=== PATIENT | female | born 1990 | race Caucasian/White ===

== ENCOUNTER 2016-08-20 11:51 | Emergency (ER) | payer OTHER ==
[~2016-08-20] VITALS: Ht 160 cm; Wt 78.5 kg
[~2016-08-20 11:51] MED LIST: CYCLOBENZAPRINE10 M1 PO; IBUPROFEN800 M1 PO; MICROGESTIN FE1 TA1 PO
[2016-08-20 11:56] VITALS: BP 139/89
--- NOTE | 2016-08-20 12:01 | ED GENERAL ADULT ---
History of Present Illness General Chief Complaint: General Adult Stated Complaint: FINGER STICK WITH SCISSORS AT WORK Source: patient Exam Limitations: no limitations Vital Signs & Intake/Output Vital Signs & Intake/Output Vital Signs Date Time Temp Pulse Resp B/P Pulse O2 O2 Flow FiO2 Ox Delivery Rate 08/20 1156 98.0 109 18 139/89 96 Room Air Allergies Coded Allergies: NO KNOWN ALLERGIES (08/08/16) Reconcile Medications Ethinyl Estradiol/Norethindr2 (Microgestin Fe 09/06 20 Mcg-75 MG-1 MG) 1 TAB TAB 1 TAB PO DAILY CONTROL (Reported) Triage Note: 26 Y/O FEMALE PRESENTS WITH PUNCTURE WOUND TO L 1ST FINGER; CUT WITH SCISSORS WHILE REMOVING DRESSING FROM WOUND (KNOWN SOURCE PATIENT). UNKNOWN LAST TETANUS WORKMANS COMP COMPLETED Triage Nurses Notes Reviewed? yes Onset: Just prior to arrival Duration: minute(s): (30) Timing: no prior history Injury Environment: work Severity: mild Severity Numbers: 1 No Modifying Factors: none : No Patient currently breastfeeds: No HPI: Patient is a 26-year-old female presenting to the emergency department with questionable postexposure injury at work today. Patient reports she was cutting off her dressing off of someone and accidentally cut the distal tip of her left pointer finger in the process. She pulled off her glove and noticed blood. Denies any pain. Denies any numbness or treatment. She washed the area immediately. Unsure of tetanus immunization. She reports she is up-to-date on all other immunizations. She reports that the source patient does not have any known HIV or hepatitis. Patient declining HIV prophylaxis at this time. Denies any nausea vomiting fevers or chills chest pain or shortness of breath. (YOMI SMITH) Past History Travel History Traveled to [place] past 21 day No Medical History Any Pertinent Medical History? see below for history Neurological: NONE EENT: NONE Cardiovascular: NONE Respiratory: NONE Gastrointestinal: NONE Hepatic: NONE Renal: NONE Musculoskeletal: NONE Psychiatric: NONE Endocrine: NONE Blood Disorders: NONE Cancer(s): NONE VIDEO SOFTWARE ENGINEER/Reproductive: NONE Surgical History Surgical History: none Psychosocial History What is your primary language French Tobacco Use: Never used Family History Hx Contributory? No (YOMI SMITH) Review of Systems Review of Systems Constitutional: Reports: no symptoms. Comments Review of systems: See HPI, All other systems negative. Constitutional, no chills fever or weight loss HEENT: No visual changes Cardiovascular: No chest pain Skin, no jaundice no rashes Respiratory: No dyspnea cough sputum or hemoptysis GI: No nausea no vomiting Neurologic: No numbness Psych: No stress anxiety Immunology: No splenectomy or history of AIDS (YOMI SMITH) Physical Exam Physical Exam General Appearance: well developed/nourished, no apparent distress, alert, awake , comfortable Comments: Well-developed well-nourished no apparent distress. HEENT: Atraumatic, extraocular motion intact Neck: Supple, no lymphadenopathy Back: Nontender Respiratory: No respiratory distress Extremities: No edema, full range of motion of all digits on the upper extremities bilaterally. Radial pulses are 2+ bilaterally. Cap refill intact in upper extremities. Skin: Superficial laceration approximately 0.5 millimeters noted on the distal tip of the left pointer finger. No surrounding erythema or edema. Nontender to palpation. Neuro: Alert and oriented x3 Psych: Mood affect normal, normal memory normal judgment. Core Measures ACS in differential dx? No CVA/TIA Diagnosis: No Severe Sepsis Present: No Septic Shock Present: No (YOMI SMITH) Progress Differential Diagnoses I considered the following diagnoses in my evaluation of the patient: Laceration, abrasion, postexposure prophylaxis, needle stick injury Plan of Care: Orders Procedure Date/time Status HIV EXPOSURE/NEEDLESTICK 08/20 120 Active HUMAN BETA HCG SCREEN 08/20 1209 Active HEPT C ANTIBODY 08/20 1209 Active HEPT B SURFACE ANTIBODY 08/20 1209 Active GAMMA GLUTAMYL TRANSFERASE 08/20 1209 Active COMPREHENSIVE METABOLIC PANEL 08/20 1209 Active CBC WITHOUT DIFFERENTIAL 08/20 1209 Complete TRNSFRASE ASPART AMINO 08/20 1209 Active TRNSFRAS ALANINE AMINO 08/20 1209 Active Laboratory Tests 08/20/16 1226: CBC w Diff NO MAN DIFF REQ, RBC 4.74, MCV 82.9, MCH 28.2, RDW 13.1, MPV 10.0, Gran % 54.7, Lymphocytes % 34.7, Monocytes % 8.2, Eosinophils % 1.8, Basophils % 0.6, Absolute Granulocytes 3.4, Absolute Lymphocytes 2.2, Absolute Monocytes 0.5 , Absolute Eosinophils 0.1, Absolute Basophils 0, PUBS MCHC 34.1 08/20/16 1220: Anion Gap 14, Estimated GFR > 60, BUN/Creatinine Ratio 20.0, Glucose 90, Calcium 9.5, Total Bilirubin 0.4, GGT 36, AST 26, ALT 55 H, Alkaline Phosphatase 96, Total Protein 7.2, Albumin 4.2, Globulin 3.0, Albumin/Globulin Ratio 1.4, Total Beta HCG NEGATIVE, Hep Bs Antibody REACTIVE, Hepatitis C Antibody Pending, HIV 1 &2 Antibody Pending Initial ED EKG: none (YOMI SMITH) Departure Departure Time of Disposition: 1216 Disposition: HOME OR SELF CARE Condition: Stable Clinical Impression Primary Impression: Needlestick injury accident Qualifiers: Encounter type: initial encounter Qualified Code: W27.3XXA - Contact with needle (sewing), initial encounter Referrals: FRANKIE LEE MD (PCP/Family) Referred to [facility] as new patient No Additional Instructions: Follow-up with occupational medicine call the phone number is [phone] on the next business day to review the event and discussed the results. Follow-up hepatitis C and HIV tests will be cord In occupational medicine staff. Follow-up appointments will also be scheduled by [place] occupational medical staff. Keep your wound clean. Wash daily with soap and water. Apply bacitracin daily. Return for any increased redness pain or concerns. You WERE GIVEN TETNUS immunization today. Departure Forms: Customer Survey [employer] Employee [facility] General Discharge Information (YOMI SMITH) PA/TEST ENGINEERING INTERN Co-Sign Statement Statement: ED Attending supervision documentation- [] I saw and evaluated the patient. I have also reviewed all the pertinent lab results and diagnostic results. I agree with the findings and the plan of care as documented in the PA's/TEST ENGINEERING INTERN's documentation. x I have reviewed the ED Record and agree with the PA's/TEST ENGINEERING INTERN's documentation. [] Additions or exceptions (if any) to the PAs/TEST ENGINEERING INTERN's note and plan are summarized below: [] (DANA WILKINSON,JOSE) Critical Care Note Critical Care Note Critical Care Time: non-applicable (YOMI SMITH) ED Attending Observation Initial Observation Note: I have seen and personally examined SASHA IRBY on 08/20/16 at 1225. I agree with the current emergency department documentation. The disposition (admission or discharge) is uncertain at this time, she needs a period of observation for the following reason(s): The ED Nurse caring for this patient has been personally informed as to what the patient is being observed for. (NUZHAT ANGELES,YOMI)
[2016-08-20 12:40] LABS: ABSOLUTE BASOPHIL COUNT 0 /CUMM (0.0-0.2); ABSOLUTE EOSINOPHIL COUNT 0.1 /CUMM (0.0-0.7); ABSOLUTE GRANULOCYTE CT 3.4 /CUMM (1.4-6.5); ABSOLUTE LYMPH COUNT 2.2 /CUMM (1.2-3.4); ABSOLUTE MONOCYTE COUNT 0.5 /CUMM (0.10-0.60); BASOPHIL % 0.6 % (0.0-2.0); EOSINOPHIL % 1.8 % (0-5); GRANULOCYTE % 54.7 % (42.2-75.2); HEMATOCRIT 39.3 % (37-47); MEAN CORPUSCULAR HGB 28.2 PG (27.0-31.0); MEAN CORPUSCULAR HGB CONC 34.1 G/DL (33.0-37.0); MEAN CORPUSCULAR VOLUME 82.9 FL (81.0-99.0); PLATELET COUNT 240 /CUMM (130-400); RBC DISTRIBUTION WIDTH 13.1 % (11.5-14.5); RED BLOOD CELL CT 4.74 /CUMM (4.20-5.40); WHITE BLOOD CELL COUNT 6.2 /CUMM (4.8-10.8)
== END 2016-08-20 12:45 ==
LOC: ERH 11:51
PROVIDERS: Physician Assistant
DX: S61.211A Laceration without foreign body of left index finger without damage to nail, initial encounter (principal); W27.2XXA Contact with scissors, initial encounter
CPT/HCPCS: 86803; 87389; 90471; 90714